=== PATIENT | female | born 1940 | race African-American/Black ===

== ENCOUNTER 2016-06-20 11:04 | Outpatient (CLI) | payer MEDICARE ==
[2016-06-20 11:38] LABS: ALT (SGPT) 11 U/L (8-55); AST (SGOT) 14 U/L (5-34); Albumin 4.1 g/dL (3.4-4.8); Alkaline Phosphatase 110 U/L (40-150); Bilirubin, Direct 0.2 mg/dL (0.1-0.3); Bilirubin, Total 0.5 mg/dL (0.2-1.2); Cardiac Risk 2.7 (Less than 4.5); Cholesterol 112 mg/dL (< 200 Desired); HDL Cholesterol 41 mg/dL (>60 Neg Risk); LDL Cholesterol, Calculated 46 mg/dL; Protein, Total 6.3 g/dL (5.8-8.1); Triglycerides 124 mg/dL (Less than 150)
== END 2016-06-20 11:05 | disposition home or self-care (01) ==
LOC: MADLAB 11:04
PROVIDERS: ATTEND Internal Medicine Cardiovascular Disease
DX: E11.22 Type 2 diabetes mellitus with diabetic chronic kidney disease (principal); N18.6 End stage renal disease
CPT/HCPCS: 36415; 80061; 80076

== ENCOUNTER 2016-07-23 10:26 | Outpatient (CLI) | payer MEDICAID, MEDICARE, OTHER ==
[2016-07-23 11:07] LABS: #Basophils 0.1 thou/uL (0.0-0.2); #Eosinphils 0.3 thou/uL (0.0-0.7); #Lymphocytes 1.7 thou/uL (1.20-3.40); #Monocytes 0.8 thou/uL (0.11-0.59); #Neutrophils 4.7 thou/uL (1.40-6.50); %Basophils 1.3 % (0.0-1.0); %Eosinophils 3.4 % (0.0-10.0); %Lymphocytes 22.2 % (21.0-51.0); %Monocytes 10.2 % (0.0-10.0); %Neutrophils 62.9 % (42.0-75.0); Hemoglobin 11.2 g/dL (12.0-16.0); Mean Corpuscular HGB CONC 34.8 g/dL (32.0-36.0); Mean Corpuscular Hemoglobin 33.2 pg (27.0-31.0); Mean Corpuscular Volume 95.5 fl (81.0-99.0); Mean Platelet Volume 7.7 fL (7.4-10.4); Platelet Count 223 thou/uL (130-400); RBC Distribution Width 13.5 % (11.5-14.5); Red Blood Cell (RBC) Count 3.36 mill/uL (4.20-5.40); White Blood Cell (WBC) Count 7.5 thou/uL (4.8-10.8)
[2016-07-23 11:15] LABS: Hemoglobin A1c 5.3 % (4.0-6.0)
[2016-07-23 11:26] LABS: ALT (SGPT) 11 U/L (8-55); AST (SGOT) 14 U/L (5-34); Albumin 3.9 g/dL (3.4-4.8); Alkaline Phosphatase 130 U/L (40-150); Anion Gap 17 mmol/L (10-20); BUN (Urea Nitrogen) 39 mg/dL (9.8-20.1); Bilirubin, Total 0.5 mg/dL (0.2-1.2); Calc. Creatinine Clearance 0 mL/min (70-130); Calcium 9.8 mg/dL (7.8-10.44); Carbon Dioxide 29 mmol/L (23-31); Cardiac Risk 2.8 (Less than 4.5); Chloride 100 mmol/L (98-107); Cholesterol 109 mg/dl (< 200 Desired); Estimated GFR-MDRD 6; Globulin 3.1 g/dL (2.4-3.5); Glucose 97 mg/dL (83-110); HDL Cholesterol 39 mg/dL (>60 Neg Risk); LDL Cholesterol, Calculated 41 mg/dL; Potassium 3.4 mmol/L (3.5-5.1); Sodium 143 mmol/L (136-145); Triglycerides 144 mg/dL (Less than 150); Uric Acid 4.1 mg/dL (2.6-6.0)
== END 2016-07-23 10:27 ==
LOC: MADLABBHPM 10:26
PROVIDERS: ATTEND Family Medicine
DX: E78.5 Hyperlipidemia, unspecified (principal); E11.9 Type 2 diabetes mellitus without complications; M10.00 Idiopathic gout, unspecified site; Z79.01 Long term (current) use of anticoagulants
CPT/HCPCS: 36415; 80053; 80061; 83036; 84443; 84550; 85025

== ENCOUNTER 2016-09-12 20:31 | Emergency (ER) | payer MEDICARE, MEDICAID ==
[2016-09-12 21:14] LABS: #Basophils 0.1 thou/uL (0.0-0.2); #Eosinphils 0.2 thou/uL (0.0-0.7); #Lymphocytes 2.2 thou/uL (1.20-3.40); #Monocytes 0.7 thou/uL (0.11-0.59); #Neutrophils 4.7 thou/uL (1.40-6.50); %Basophils 1.2 % (0.0-1.0); %Eosinophils 2.9 % (0.0-10.0); %Lymphocytes 28.2 % (21.0-51.0); %Monocytes 8.2 % (0.0-10.0); %Neutrophils 59.6 % (42.0-75.0); Hemoglobin 10.7 g/dL (12.0-16.0); Mean Corpuscular HGB CONC 33.3 g/dL (32.0-36.0); Mean Corpuscular Hemoglobin 31.7 pg (27.0-31.0); Mean Corpuscular Volume 95.1 fl (81.0-99.0); Mean Platelet Volume 7.3 fL (7.4-10.4); Platelet Count 180 thou/uL (130-400); RBC Distribution Width 14.4 % (11.5-14.5); Red Blood Cell (RBC) Count 3.38 mill/uL (4.20-5.40)
--- NOTE | 2016-09-12 21:19 | RAD ---
FRONTAL RADIOGRAPH CHEST 09/12/16 COMPARISON: 03/25/15 HISTORY: Dyspnea. FINDINGS: There is no pneumothorax or pleural fluid. There is no focal consolidation, or alveolar edema. Heart and mediastinal contours appear within normal limits. IMPRESSION: There is a subtle area of increased density in the right lung apex which may represent a confluence of osseous shadows. Recommend followup PA and lateral chest imaging to exclude an abnormal pleural b ased density. IMPRESSION: No acute findings. Subtle increased density in the right lung apex for which followup PA and lateral chest imaging is advised. Code T POS: [facility]
[2016-09-12 21:20] LABS: INR-International Normal Ratio 1.9; PTT 36.5 SEC (22.9-36.1); Prothrombin Time 22.4 SEC (12.0-14.7)
[2016-09-12] MEDS ORDERED: Morphine Sulfate 2 MG/ML SYRINGE ONE (21:26)
[2016-09-12] MEDS ORDERED: Ondansetron HCl/PF 4 MG/2 ML Vial ONE (21:26)
[2016-09-12 21:30] LABS: Clarity Clear (Clear); Glucose, Urine (Dipstick) Negative (Negative); Leukocyte Negative (Negative); Nitrite Negative (Negative); Protein, Urine (Dipstick) Trace mg/dL (Neg-Trace); Urobilinogen 0.2 mg/dL (0.2-1.0)
[2016-09-12 21:30] LABS: CKMB 0.8 ng/mL (0-6.6); Troponin I 0.011 ng/mL (< 0.028)
[2016-09-12 21:31] LABS: Bilirubin Negative (Negative); Blood, Urine Negative (Negative); Icto Negative (Negative)
[2016-09-12 21:33] LABS: Bacteria/HPF None Seen HPF (None Seen); Crystals/HPF None Seen HPF (Negative); Hyaline Casts/LPF NONE SEEN LPF (0-3 Hyaline); Other Casts/LPF None Seen LPF (0-3 Hyaline); Other Microscopic Description N; Oval Fat Bodies/HPF None Seen HPF (None Seen); RBC/HPF 0-3 HPF (0-3); Sperm/HPF None Seen HPF (None Seen); Squamous Epithelial 0-3 HPF (0-3); Transitional Epithelial 0-3 HPF (0-3); Trichomonas/HPF None Seen HPF (None Seen); WBC/HPF 0-3 HPF (0-3); Yeast-All Forms None Seen HPF (None Seen)
[2016-09-12 21:35] LABS: ALT (SGPT) 14 U/L (8-55); AST (SGOT) 13 U/L (5-34); Albumin 3.6 g/dL (3.4-4.8); Alkaline Phosphatase 116 U/L (40-150); Anion Gap 17 mmol/L (10-20); BUN (Urea Nitrogen) 12 mg/dL (9.8-20.1); Bilirubin, Total 0.4 mg/dL (0.2-1.2); CK (CPK) 97 U/L (29-168); Calc. Creatinine Clearance 0 mL/min (70-130); Calcium 8.9 mg/dL (7.8-10.44); Carbon Dioxide 29 mmol/L (23-31); Chloride 96 mmol/L (98-107); Estimated GFR-MDRD 18; Globulin 2.9 g/dL (2.4-3.5); Glucose 194 mg/dL (83-110); Magnesium 1.9 mg/dL (1.6-2.6); Protein, Total 6.5 g/dL (6.0-8.3); Sodium 139 mmol/L (136-145)
[2016-09-12 21:38] LABS: Potassium 2.9 mmol/L (3.5-5.1)
[2016-09-12] MEDS ORDERED: Potassium Chloride 20 MEQ TAB ONE (21:43)
[2016-09-12] MEDS ORDERED: Benzonatate 100 MG CAP ONE (22:20)
[2016-09-12] MEDS ORDERED: AMOXicillin 250 MG CAP ONE (22:20)
--- NOTE | 2016-09-12 22:45 | RAD ---
PA AND LATERAL CHEST RADIOGRAPH 09/12/16 at 10:25 p.m. COMPARISON: Single view chest performed earlier on 09/12/16. HISTORY: Evaluate increased density in right lung apex. FINDINGS: The area of increased density seen on recent portable chest radiograph does not persist on this exam . There is no pneumothorax, pleural fluid, focal consolidation, or alveolar edema. Lateral examinati on demonstrates prominence of the cardiac silhouette and degenerative change within the thoracic spi ne. The lateral examination is limited secondary to motion artifact. IMPRESSION: No acute findings. POS: [facility]
== END 2016-09-12 22:57 | disposition home or self-care (01) ==
LOC: MADERS 20:31
DX: J44.1 Chronic obstructive pulmonary disease with (acute) exacerbation (principal); I13.0 Hypertensive heart and chronic kidney disease with heart failure and stage 1 through stage 4 chronic kidney disease, or unspecified chronic kidney disease; I50.9 Heart failure, unspecified; N18.4 Chronic kidney disease, stage 4 (severe); G89.4 Chronic pain syndrome; E87.6 Hypokalemia; E11.8 Type 2 diabetes mellitus with unspecified complications; E78.5 Hyperlipidemia, unspecified; F32.9 Major depressive disorder, single episode, unspecified; Z87.891 Personal history of nicotine dependence; Z79.891 Long term (current) use of opiate analgesic; Z79.899 Other long term (current) drug therapy
CPT/HCPCS: 36415; 51701; 71010; 71020; 80053; 81001; 82550; 82553; 83735; 83880; 84484; 85025; 85610; 85730; 93005; 94760; 96374; 96375; A4353; J2270; J2405

== ENCOUNTER 2016-10-23 12:53 | Outpatient (CLI) | payer MEDICAID, MEDICARE ==
[2016-10-23 13:16] LABS: #Basophils 0.1 thou/uL (0.0-0.2); #Eosinphils 0.3 thou/uL (0.0-0.7); #Lymphocytes 1.1 thou/uL (1.20-3.40); #Monocytes 0.6 thou/uL (0.11-0.59); #Neutrophils 5.3 thou/uL (1.40-6.50); %Basophils 0.7 % (0.0-1.0); %Eosinophils 3.6 % (0.0-10.0); %Neutrophils 72.6 % (42.0-75.0); Hemoglobin 11.9 g/dL (12.0-16.0); Mean Corpuscular HGB CONC 31.7 g/dL (32.0-36.0); Mean Corpuscular Hemoglobin 31.4 pg (27.0-31.0); Mean Corpuscular Volume 99.1 fl (81.0-99.0); Mean Platelet Volume 6.8 fL (7.4-10.4); Platelet Count 237 thou/uL (130-400); RBC Distribution Width 15.8 % (11.5-14.5); Red Blood Cell (RBC) Count 3.78 mill/uL (4.20-5.40); White Blood Cell (WBC) Count 7.3 thou/uL (4.8-10.8)
[2016-10-23 13:49] LABS: ALT (SGPT) 18 U/L (8-55); AST (SGOT) 15 U/L (5-34); Albumin 3.8 g/dL (3.4-4.8); Alkaline Phosphatase 117 U/L (40-150); Anion Gap 20 mmol/L (10-20); BUN (Urea Nitrogen) 23 mg/dL (9.8-20.1); Bilirubin, Total 0.6 mg/dL (0.2-1.2); Calc. Creatinine Clearance 0 mL/min (70-130); Calcium 9.2 mg/dL (7.8-10.44); Carbon Dioxide 29 mmol/L (23-31); Chloride 99 mmol/L (98-107); Estimated GFR-MDRD 9; Globulin 2.5 g/dL (2.4-3.5); Glucose 108 mg/dL (83-110); Hemoglobin A1c 4.8 % (4.0-6.0); Protein, Total 6.3 g/dL (6.0-8.3); Sodium 144 mmol/L (136-145)
== END 2016-10-23 12:54 | disposition home or self-care (01) ==
LOC: MADLAB 12:53
PROVIDERS: ATTEND Family Medicine
DX: Z51.81 Encounter for therapeutic drug level monitoring (principal); E11.22 Type 2 diabetes mellitus with diabetic chronic kidney disease; I13.0 Hypertensive heart and chronic kidney disease with heart failure and stage 1 through stage 4 chronic kidney disease, or unspecified chronic kidney disease; N18.4 Chronic kidney disease, stage 4 (severe); E78.5 Hyperlipidemia, unspecified; Z79.01 Long term (current) use of anticoagulants; Z86.711 Personal history of pulmonary embolism; D63.1 Anemia in chronic kidney disease
CPT/HCPCS: 36415; 80053; 83036; 85025

== ENCOUNTER 2016-10-25 10:04 | Outpatient (CLI) | payer MEDICARE ==
[2016-10-25 10:33] LABS: INR-International Normal Ratio 1.4; Prothrombin Time 17.5 SEC (12.0-14.7)
== END 2016-10-25 10:05 | disposition home or self-care (01) ==
LOC: MADLABBHPM 10:04
PROVIDERS: ATTEND Family Medicine
DX: Z51.81 Encounter for therapeutic drug level monitoring (principal); Z79.01 Long term (current) use of anticoagulants
CPT/HCPCS: 36415; 85610

== ENCOUNTER 2016-11-17 01:16 | Emergency (ER) | payer MEDICARE ==
[2016-11-17] MEDS ORDERED: Ketorolac Tromethamine 30 MG/ML VIAL ONE (01:50)
[2016-11-17 01:57] LABS: #Basophils 0.1 thou/uL (0.0-0.2); #Eosinphils 0.2 thou/uL (0.0-0.7); #Lymphocytes 1.6 thou/uL (1.20-3.40); #Monocytes 0.7 thou/uL (0.11-0.59); #Neutrophils 5.5 thou/uL (1.40-6.50); %Eosinophils 2.7 % (0.0-10.0); %Lymphocytes 19.4 % (21.0-51.0); %Monocytes 9.1 % (0.0-10.0); %Neutrophils 67.8 % (42.0-75.0); Hemoglobin 11.7 g/dL (12.0-16.0); Mean Corpuscular HGB CONC 33.3 g/dL (32.0-36.0); Mean Corpuscular Hemoglobin 32.2 pg (27.0-31.0); Mean Corpuscular Volume 96.6 fl (81.0-99.0); Mean Platelet Volume 7.2 fL (7.4-10.4); Platelet Count 252 thou/uL (130-400); Red Blood Cell (RBC) Count 3.64 mill/uL (4.20-5.40)
[2016-11-17 02:13] LABS: CKMB 1.1 ng/mL (0-6.6); Troponin I 0.017 ng/mL (< 0.028)
[2016-11-17 02:22] LABS: Calc. Creatinine Clearance 0 mL/min (70-130); Estimated GFR-MDRD 10
[2016-11-17 02:23] LABS: ALT (SGPT) 19 U/L (8-55); AST (SGOT) 51 U/L (5-34); Albumin 3.7 g/dL (3.4-4.8); Alkaline Phosphatase 99 U/L (40-150); Anion Gap 18 mmol/L (10-20); BUN (Urea Nitrogen) 28 mg/dL (9.8-20.1); Bilirubin, Total 0.4 mg/dL (0.2-1.2); Calcium 9.3 mg/dL (7.8-10.44); Carbon Dioxide 29 mmol/L (23-31); Chloride 97 mmol/L (98-107); Globulin 3.7 g/dL (2.4-3.5); Glucose 99 mg/dL (83-110); Potassium 4.6 mmol/L (3.5-5.1); Protein, Total 7.4 g/dL (6.0-8.3); Sodium 139 mmol/L (136-145)
[2016-11-17 02:38] LABS: Bilirubin Small (Negative); Blood, Urine Negative (Negative); Clarity Clear (Clear); Glucose, Urine (Dipstick) Negative (Negative); Leukocyte Negative (Negative); Nitrite Negative (Negative); Protein, Urine (Dipstick) Negative (Neg-Trace); Specific Gravity, Urine 1.015 (1.005-1.030); Urobilinogen 0.2 mg/dL (0.2-1.0)
== END 2016-11-17 02:59 | disposition home or self-care (01) ==
LOC: MADERS 01:16
DX: I13.0 Hypertensive heart and chronic kidney disease with heart failure and stage 1 through stage 4 chronic kidney disease, or unspecified chronic kidney disease (principal); N18.4 Chronic kidney disease, stage 4 (severe); I50.9 Heart failure, unspecified; G89.29 Other chronic pain; M54.5 Low back pain; E78.5 Hyperlipidemia, unspecified; E11.9 Type 2 diabetes mellitus without complications; M10.9 Gout, unspecified; I08.0 Rheumatic disorders of both mitral and aortic valves; F32.9 Major depressive disorder, single episode, unspecified; Z87.891 Personal history of nicotine dependence; Z79.01 Long term (current) use of anticoagulants; Z79.899 Other long term (current) drug therapy
CPT/HCPCS: 51701; 80053; 81003; 82553; 84484; 85025; 85730; 93005; 96372; A4353; J1885

== ENCOUNTER 2017-02-03 16:37 | Emergency (ER) | payer MEDICARE, MEDICAID ==
[2017-02-03] MEDS ORDERED: Azithromycin 250 MG TAB ONE (17:28)
[2017-02-03] MEDS ORDERED: HYDROcodone/Acetaminophen 5/325 mg Tablet ONE (17:28)
[2017-02-03] MEDS ORDERED: Amoxicillin/Potassium Clav 875 MG TAB ONE (17:28)
[2017-02-03] MEDS ORDERED: Dexamethasone 4 MG TAB ONE (17:30)
[2017-02-03] MEDS ORDERED: Benzonatate 100 MG CAP ONE (17:30)
--- NOTE | 2017-02-03 18:02 | RAD ---
RADIOGRAPH CHEST 2 VIEWS: HISTORY: 76-year-old female with cough. FINDINGS: There is no air space density, pulmonary edema, pleural effusion, pneumothorax, or cardiomegaly. IMPRESSION: No acute cardiopulmonary findings. pamela POS: [facility]
== END 2017-02-03 17:44 | disposition home or self-care (01) ==
LOC: MADERS 16:37
DX: J20.9 Acute bronchitis, unspecified (principal); E11.9 Type 2 diabetes mellitus without complications; I13.0 Hypertensive heart and chronic kidney disease with heart failure and stage 1 through stage 4 chronic kidney disease, or unspecified chronic kidney disease; I50.9 Heart failure, unspecified; N18.4 Chronic kidney disease, stage 4 (severe); F32.9 Major depressive disorder, single episode, unspecified; E78.5 Hyperlipidemia, unspecified; M10.9 Gout, unspecified; Z87.891 Personal history of nicotine dependence; Z79.82 Long term (current) use of aspirin; Z79.899 Other long term (current) drug therapy; Z79.01 Long term (current) use of anticoagulants
CPT/HCPCS: 71020; J8540

== ENCOUNTER 2017-02-08 18:16 | Emergency (ER) | payer MEDICARE, OTHER ==
[2017-02-08 19:05] LABS: INR-International Normal Ratio 2.4
[2017-02-08 19:06] LABS: PTT 55.7 SEC (22.9-36.1)
--- NOTE | 2017-02-08 19:15 | RAD ---
LEFT HIP TWO VIEWS: 02/08/17 HISTORY: 76-year-old female with left hip pain. COMPARISON: 10/14/14. FINDINGS: Mild degenerative changes left hip joint. No fracture or dislocation or other acute process. IMPRESSION: No fracture or dislocation. Minimal degenerative changes. POS: [facility]
[2017-02-08 19:16] LABS: ALT (SGPT) 12 U/L (8-55); AST (SGOT) 13 U/L (5-34); Albumin 3.7 g/dL (3.4-4.8); Alkaline Phosphatase 105 U/L (40-150); Anion Gap 21 mmol/L (10-20); BUN (Urea Nitrogen) 49 mg/dL (9.8-20.1); Bilirubin, Total 0.6 mg/dL (0.2-1.2); CK (CPK) 146 U/L (29-168); Calc. Creatinine Clearance 0 mL/min (70-130); Calcium 8.6 mg/dL (7.8-10.44); Carbon Dioxide 30 mmol/L (23-31); Chloride 97 mmol/L (98-107); Estimated GFR-MDRD 5; Globulin 3.3 g/dL (2.4-3.5); Glucose 128 mg/dL (83-110); Potassium 5.7 mmol/L (3.5-5.1); Sodium 142 mmol/L (136-145)
[2017-02-08 19:18] LABS: CKMB 0.6 ng/mL (0-6.6); Troponin I 0.018 ng/mL (< 0.028)
[2017-02-08 19:19] LABS: Hemoglobin 11.4 g/dL (12.0-16.0); Lymphocytes 2 % (21-51); MDiff Complete? YES; Mean Corpuscular HGB CONC 32.6 g/dL (32.0-36.0); Mean Corpuscular Hemoglobin 32.5 pg (27.0-31.0); Mean Corpuscular Volume 99.9 fl (81.0-99.0); Mean Platelet Volume 7.1 fL (7.4-10.4); Metamyelocyte 1 % (0-0); Monocytes 2 % (0-10); Myelocyte 1 % (0-0); Neutrophil 88 % (42-75); PLT Morphology Comment Appears Adequate; Platelet Count 280 thou/uL (130-400); RBC Distribution Width 14.7 % (11.5-14.5); Reactive Lymphocytes 6 % (0-10); White Blood Cell (WBC) Count 18.7 thou/uL (4.8-10.8)
--- NOTE | 2017-02-08 19:21 | RAD ---
PORTABLE CHEST ONE VIEW: 02/08/17 HISTORY: 76-year-old female with chest pain. COMPARISON: 09/12/16. A loop recorder is noted overlying the left chest. Heart size is within normal limits. No confluent p neumonia, overt edema, or pleural effusion. IMPRESSION: No acute intrathoracic disease. POS: [facility]
== END 2017-02-08 21:16 | disposition short-term general hospital (02) ==
LOC: MADERS 18:16
DX: I13.2 Hypertensive heart and chronic kidney disease with heart failure and with stage 5 chronic kidney disease, or end stage renal disease (principal); I50.9 Heart failure, unspecified; N18.6 End stage renal disease; I38 Endocarditis, valve unspecified; E11.9 Type 2 diabetes mellitus without complications; E78.5 Hyperlipidemia, unspecified; F32.9 Major depressive disorder, single episode, unspecified; M10.9 Gout, unspecified; Z87.891 Personal history of nicotine dependence; Z79.01 Long term (current) use of anticoagulants; Z79.899 Other long term (current) drug therapy; Z79.891 Long term (current) use of opiate analgesic
CPT/HCPCS: 36415; 71010; 80053; 82550; 82553; 84484; 85025; 85610; 85730; 93005; 94760

== ENCOUNTER 2017-03-11 15:57 | Emergency (ER) | payer MEDICARE, MEDICAID ==
[2017-03-11] MEDS ORDERED: HYDROcodone/Acetaminophen 10/325 mg Tablet ONE (16:24)
[2017-03-11 16:35] LABS: #Basophils 0.1 thou/uL (0.0-0.2); #Eosinphils 0.3 thou/uL (0.0-0.7); #Lymphocytes 1.5 thou/uL (1.20-3.40); #Monocytes 0.7 thou/uL (0.11-0.59); %Eosinophils 3.3 % (0.0-10.0); %Lymphocytes 17.5 % (21.0-51.0); %Monocytes 8.3 % (0.0-10.0); %Neutrophils 69.9 % (42.0-75.0); Hemoglobin 10.5 g/dL (12.0-16.0); Mean Corpuscular HGB CONC 31.2 g/dL (32.0-36.0); Mean Corpuscular Hemoglobin 32.1 pg (27.0-31.0); Mean Corpuscular Volume 102.9 fl (81.0-99.0); Mean Platelet Volume 6.9 fL (7.4-10.4); Platelet Count 272 thou/uL (130-400); RBC Distribution Width 15.6 % (11.5-14.5); Red Blood Cell (RBC) Count 3.28 mill/uL (4.20-5.40); White Blood Cell (WBC) Count 8.6 thou/uL (4.8-10.8)
[2017-03-11 16:45] LABS: INR-International Normal Ratio 2.3; PTT 50.1 SEC (22.9-36.1); Prothrombin Time 26.5 SEC (12.0-14.7)
[2017-03-11 17:01] LABS: ALT (SGPT) Less than 7 U/L (8-55); AST (SGOT) 14 U/L (5-34); Albumin 3.9 g/dL (3.4-4.8); Alkaline Phosphatase 111 U/L (40-150); Anion Gap 20 mmol/L (10-20); BUN (Urea Nitrogen) 18 mg/dL (9.8-20.1); Bilirubin, Total 0.6 mg/dL (0.2-1.2); Calc. Creatinine Clearance 0 mL/min (70-130); Calcium 8.7 mg/dL (7.8-10.44); Carbon Dioxide 31 mmol/L (23-31); Chloride 95 mmol/L (98-107); Estimated GFR-MDRD 10; Globulin 3.4 g/dL (2.4-3.5); Glucose 109 mg/dL (83-110); Potassium 4.4 mmol/L (3.5-5.1); Protein, Total 7.3 g/dL (6.0-8.3); Sodium 142 mmol/L (136-145)
== END 2017-03-11 17:15 | disposition home or self-care (01) ==
LOC: MADERS 15:57
DX: M79.621 Pain in right upper arm (principal); I12.0 Hypertensive chronic kidney disease with stage 5 chronic kidney disease or end stage renal disease; N18.6 End stage renal disease; E11.22 Type 2 diabetes mellitus with diabetic chronic kidney disease; E78.5 Hyperlipidemia, unspecified; M10.9 Gout, unspecified; F32.9 Major depressive disorder, single episode, unspecified; Z79.82 Long term (current) use of aspirin; Z79.899 Other long term (current) drug therapy
CPT/HCPCS: 36415; 80053; 85025; 85610; 85730; 99283

== ENCOUNTER 2017-04-09 16:07 | Emergency (ER) | payer MEDICARE, MEDICAID ==
--- NOTE | 2017-04-09 16:45 | RAD ---
AP VIEW CHEST: Date: 04/09/17 INDICATION: Nausea and vomiting. COMPARISON: Prior study dated 02/08/17. FINDINGS: No air space consolidation or pleural effusion is evident. Calcification overlying the left heart bor alicia is stable. Calcified lymph nodes involving the mediastinum and right hilar region are stable. No pleural effusion or pneumothorax evident. IMPRESSION: No acute cardiopulmonary abnormality. POS: [facility]
[2017-04-09 17:00] LABS: INR-International Normal Ratio 3.8; Prothrombin Time 39.4 SEC (12.0-14.7)
[2017-04-09 17:10] LABS: ALT (SGPT) 7 U/L (8-55); AST (SGOT) 10 U/L (5-34); Albumin 3.3 g/dL (3.4-4.8); Alkaline Phosphatase 90 U/L (40-150); Anion Gap 18 mmol/L (10-20); BUN (Urea Nitrogen) 56 mg/dL (9.8-20.1); Bilirubin, Total 0.2 mg/dL (0.2-1.2); Calc. Creatinine Clearance 0 mL/min (70-130); Calcium 7.8 mg/dL (7.8-10.44); Carbon Dioxide 30 mmol/L (23-31); Chloride 98 mmol/L (98-107); Estimated GFR-MDRD 8; Globulin 2.2 g/dL (2.4-3.5); Glucose 126 mg/dL (83-110); Lipase 29 U/L (8-78); Potassium 3.7 mmol/L (3.5-5.1); Protein, Total 5.5 g/dL (6.0-8.3); Sodium 142 mmol/L (136-145)
[2017-04-09 17:13] LABS: CKMB 0.8 ng/mL (0-6.6); Troponin I 0.036 ng/mL (< 0.028)
[2017-04-09] MEDS ORDERED: MORPHINE 10 MG/ML SYRINGE ONE (17:37)
[2017-04-09 17:43] LABS: %Basophils 0.8 % (0.0-1.0); %Eosinophils 1.9 % (0.0-10.0); %Lymphocytes 13.9 % (21.0-51.0); %Monocytes 5.9 % (0.0-10.0); %Neutrophils 77.6 % (42.0-75.0); Hemoglobin 8.2 g/dL (12.0-16.0); Manual Diff?? NO; Mean Corpuscular HGB CONC 32.1 g/dL (32.0-36.0); Mean Corpuscular Hemoglobin 32.9 pg (27.0-31.0); Mean Platelet Volume 6.2 fL (7.4-10.4); Platelet Count 256 thou/uL (130-400); RBC Distribution Width 14.9 % (11.5-14.5); White Blood Cell (WBC) Count 9.8 thou/uL (4.8-10.8)
[2017-04-09 17:44] LABS: #Basophils 0.1 thou/uL (0.0-0.2); #Eosinphils 0.2 thou/uL (0.0-0.7); #Lymphocytes 1.4 thou/uL (1.20-3.40); #Monocytes 0.6 thou/uL (0.11-0.59); #Neutrophils 7.6 thou/uL (1.40-6.50)
[2017-04-09 20:22] LABS: #Lymphocytes 1.6 thou/uL (1.20-3.40); #Neutrophils 7.1 thou/uL (1.40-6.50); %Eosinophils 2.3 % (0.0-10.0); %Lymphocytes 16.5 % (21.0-51.0); %Monocytes 7.5 % (0.0-10.0); %Neutrophils 72.7 % (42.0-75.0); Hemoglobin 7.9 g/dL (12.0-16.0); Mean Corpuscular HGB CONC 31.7 g/dL (32.0-36.0); Mean Corpuscular Hemoglobin 32.6 pg (27.0-31.0); Mean Platelet Volume 6.8 fL (7.4-10.4); Platelet Count 242 thou/uL (130-400); RBC Distribution Width 14.8 % (11.5-14.5); Red Blood Cell (RBC) Count 2.43 mill/uL (4.20-5.40); White Blood Cell (WBC) Count 9.7 thou/uL (4.8-10.8)
[2017-04-09 20:23] LABS: #Basophils 0.1 thou/uL (0.0-0.2); #Eosinphils 0.3 thou/uL (0.0-0.7); #Monocytes 0.7 thou/uL (0.11-0.59)
[2017-04-09 20:41] LABS: Hypochromia SLIGHT = 6-15 cells (100X) (0-5/hpf); PLT Morphology Comment Appears Adequate; RBC Morphology Abnormal
== END 2017-04-09 21:10 | disposition short-term general hospital (02) ==
LOC: MADERS 16:07
DX: K92.1 Melena (principal); R79.1 Abnormal coagulation profile; E11.22 Type 2 diabetes mellitus with diabetic chronic kidney disease; I13.2 Hypertensive heart and chronic kidney disease with heart failure and with stage 5 chronic kidney disease, or end stage renal disease; N18.6 End stage renal disease; I50.9 Heart failure, unspecified; E78.5 Hyperlipidemia, unspecified; F32.9 Major depressive disorder, single episode, unspecified; Z87.891 Personal history of nicotine dependence; Z79.899 Other long term (current) drug therapy
CPT/HCPCS: 36415; 71045; 80053; 82274; 82553; 83605; 83690; 83735; 84484; 85025; 85610; 85730; 86850; 86900; 86901; 93005; 96374; J2270

== ENCOUNTER 2017-04-18 16:06 | Outpatient (CLI) | payer MEDICARE, OTHER ==
[2017-04-18 16:13] LABS: INR-International Normal Ratio 1.1; Prothrombin Time 14.2 SEC (12.0-14.7)
== END 2017-04-18 16:07 | disposition home or self-care (01) ==
LOC: MADLABBHPM 16:06
PROVIDERS: ATTEND Family Medicine
DX: K92.2 Gastrointestinal hemorrhage, unspecified (principal)
CPT/HCPCS: 36415; 85610

== ENCOUNTER 2017-04-19 10:29 | Outpatient (CLI) | payer MEDICARE, OTHER ==
[2017-04-19 11:12] LABS: ALT (SGPT) 10 U/L (8-55); AST (SGOT) 13 U/L (5-34); Albumin 3.6 g/dL (3.4-4.8); Alkaline Phosphatase 97 U/L (40-150); Anion Gap 20 mmol/L (10-20); BUN (Urea Nitrogen) 37 mg/dL (9.8-20.1); Bilirubin, Total 0.4 mg/dL (0.2-1.2); Calc. Creatinine Clearance 0 mL/min (70-130); Calcium 8.1 mg/dL (7.8-10.44); Carbon Dioxide 30 mmol/L (23-31); Cardiac Risk 2.8 (Less than 4.5); Chloride 102 mmol/L (98-107); Cholesterol 114 mg/dl (< 200 Desired); Estimated GFR-MDRD 6; Glucose 112 mg/dL (83-110); HDL Cholesterol 41 mg/dL (>60 Neg Risk); LDL Cholesterol, Calculated 52 mg/dL; Potassium 3.9 mmol/L (3.5-5.1); Protein, Total 5.6 g/dL (6.0-8.3); Sodium 148 mmol/L (136-145); Triglycerides 107 mg/dL (Less than 150); Uric Acid 4.6 mg/dL (2.6-6.0)
[2017-04-19 17:04] LABS: Hemoglobin A1c 4.9 % (4.0-6.0)
== END 2017-04-19 10:30 | disposition home or self-care (01) ==
LOC: MADLABBHPM 10:29
PROVIDERS: ATTEND Family Medicine
DX: I50.32 Chronic diastolic (congestive) heart failure (principal); J96.10 Chronic respiratory failure, unspecified whether with hypoxia or hypercapnia; J44.9 Chronic obstructive pulmonary disease, unspecified
CPT/HCPCS: 36415; 80053; 80061; 83036; 84550

== ENCOUNTER 2017-05-30 13:19 | Outpatient (CLI) | payer MEDICARE, OTHER ==
[2017-05-30 13:55] LABS: ALT (SGPT) 12 U/L (8-55); AST (SGOT) 16 U/L (5-34); Alkaline Phosphatase 91 U/L (40-150); Anion Gap 17 mmol/L (10-20); BUN (Urea Nitrogen) 32 mg/dL (9.8-20.1); Bilirubin, Total 0.6 mg/dL (0.2-1.2); Calc. Creatinine Clearance 0 mL/min (70-130); Calcium 8.5 mg/dL (7.8-10.44); Carbon Dioxide 32 mmol/L (23-31); Chloride 100 mmol/L (98-107); Cholesterol 140 mg/dl (< 200 Desired); Estimated GFR-MDRD 8; Globulin 2.8 g/dL (2.4-3.5); Glucose 88 mg/dL (83-110); HDL Cholesterol 46 mg/dL (>60 Neg Risk); LDL Cholesterol, Calculated 64 mg/dL; Potassium 4.5 mmol/L (3.5-5.1); Protein, Total 6.8 g/dL (6.0-8.3); Sodium 144 mmol/L (136-145); Triglycerides 150 mg/dL (Less than 150)
== END 2017-05-30 13:20 | disposition home or self-care (01) ==
LOC: MADLABBHPM 13:19
PROVIDERS: ATTEND Family Medicine
DX: E78.5 Hyperlipidemia, unspecified (principal); K92.2 Gastrointestinal hemorrhage, unspecified; Z86.39 Personal history of other endocrine, nutritional and metabolic disease
CPT/HCPCS: 36415; 80053; 80061; 83036

== ENCOUNTER 2017-08-05 16:15 | Emergency (ER) | payer MEDICARE, OTHER, MEDICAID ==
--- NOTE | 2017-08-05 17:23 | CT ---
CT BRAIN NONCONTRAST: HISTORY: A 76-year-old female status post syncope. FINDINGS: There is no midline shift or any other mass effect. There is no evidence of acute intracranial hemor rhage, large cortical infarct, obstructive hydrocephalus, or extraaxial fluid collection. The calvar ium is intact. There is a fatty mass in the soft tissues of the right upper neck, lateral to the C1- C2 level, incompletely imaged. This has been present since at least the 10/14/[address] and repr esents a benign lipoma. IMPRESSION: 1. No acute intracranial findings. 2. 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 jnr POS: [facility]
[2017-08-05 17:27] LABS: ALT (SGPT) 15 U/L (8-55); AST (SGOT) 20 U/L (5-34); Albumin 4.1 g/dL (3.4-4.8); Alkaline Phosphatase 114 U/L (40-150); Anion Gap 23 mmol/L (10-20); BUN (Urea Nitrogen) 20 mg/dL (9.8-20.1); Bilirubin, Total 0.8 mg/dL (0.2-1.2); Calc. Creatinine Clearance 0 mL/min (70-130); Calcium 8.7 mg/dL (7.8-10.44); Carbon Dioxide 30 mmol/L (23-31); Chloride 95 mmol/L (98-107); Estimated GFR-MDRD 10; Globulin 3.1 g/dL (2.4-3.5); Glucose 114 mg/dL (83-110); Potassium 3.6 mmol/L (3.5-5.1); Protein, Total 7.2 g/dL (6.0-8.3); Sodium 144 mmol/L (136-145)
[2017-08-05 17:29] LABS: CKMB 1.1 ng/mL (0-6.6); Troponin I 0.016 ng/mL (< 0.028)
[2017-08-05 17:32] LABS: #Basophils 0.1 thou/uL (0.0-0.2); #Eosinphils 0.2 thou/uL (0.0-0.7); #Lymphocytes 1.1 thou/uL (1.20-3.40); #Monocytes 0.5 thou/uL (0.11-0.59); #Neutrophils 4.6 thou/uL (1.40-6.50); %Basophils 1.1 % (0.0-1.0); %Eosinophils 2.6 % (0.0-10.0); %Lymphocytes 16.6 % (21.0-51.0); %Monocytes 7.7 % (0.0-10.0); Hemoglobin 12.1 g/dL (12.0-16.0); Mean Corpuscular HGB CONC 32.2 g/dL (32.0-36.0); Mean Corpuscular Hemoglobin 29.7 pg (27.0-31.0); Mean Corpuscular Volume 92.2 fl (81.0-99.0); Mean Platelet Volume 6.3 fL (7.4-10.4); Platelet Count 273 thou/uL (130-400); RBC Distribution Width 15.1 % (11.5-14.5); Red Blood Cell (RBC) Count 4.08 mill/uL (4.20-5.40); White Blood Cell (WBC) Count 6.4 thou/uL (4.8-10.8)
== END 2017-08-05 19:07 | disposition short-term general hospital (02) ==
LOC: MADERS 16:15
DX: R55 Syncope and collapse (principal); R07.89 Other chest pain; E11.9 Type 2 diabetes mellitus without complications; E78.5 Hyperlipidemia, unspecified; I10 Essential (primary) hypertension; I12.9 Hypertensive chronic kidney disease with stage 1 through stage 4 chronic kidney disease, or unspecified chronic kidney disease; E11.22 Type 2 diabetes mellitus with diabetic chronic kidney disease; N18.4 Chronic kidney disease, stage 4 (severe); M10.9 Gout, unspecified; F32.9 Major depressive disorder, single episode, unspecified; I50.9 Heart failure, unspecified; Z87.891 Personal history of nicotine dependence; Z79.899 Other long term (current) drug therapy; Z79.01 Long term (current) use of anticoagulants
CPT/HCPCS: 36416; 70450; 80053; 82553; 84484; 85025; 93005

== ENCOUNTER 2017-08-15 13:21 | Outpatient (CLI) | payer MEDICARE, OTHER ==
[2017-08-15 13:47] LABS: INR-International Normal Ratio 2.6; Prothrombin Time 27.9 SEC (12.0-14.7)
== END 2017-08-15 13:22 | disposition home or self-care (01) ==
LOC: MADLABBHPM 13:21
PROVIDERS: ATTEND Family Medicine
DX: Z51.81 Encounter for therapeutic drug level monitoring (principal); I13.0 Hypertensive heart and chronic kidney disease with heart failure and stage 1 through stage 4 chronic kidney disease, or unspecified chronic kidney disease; I50.9 Heart failure, unspecified; N18.9 Chronic kidney disease, unspecified; Z79.01 Long term (current) use of anticoagulants
CPT/HCPCS: 85610

== ENCOUNTER 2017-08-27 15:11 | Outpatient (CLI) | payer MEDICARE, OTHER ==
[2017-08-27 15:28] LABS: INR-International Normal Ratio 1.9; Prothrombin Time 21.6 SEC (12.0-14.7)
== END 2017-08-27 15:12 | disposition home or self-care (01) ==
LOC: MADLABBHPM 15:11
PROVIDERS: ATTEND Family Medicine
DX: Z51.81 Encounter for therapeutic drug level monitoring (principal); I20.9 Angina pectoris, unspecified; I13.0 Hypertensive heart and chronic kidney disease with heart failure and stage 1 through stage 4 chronic kidney disease, or unspecified chronic kidney disease; N18.9 Chronic kidney disease, unspecified; I50.9 Heart failure, unspecified; Z79.01 Long term (current) use of anticoagulants
CPT/HCPCS: 85610

== ENCOUNTER 2017-09-03 12:58 | Outpatient (CLI) | payer MEDICARE, OTHER ==
[2017-09-03 13:23] LABS: INR-International Normal Ratio 1.8; Prothrombin Time 21.2 SEC (12.0-14.7)
== END 2017-09-03 12:59 | disposition home or self-care (01) ==
LOC: MADLABBHPM 12:58
PROVIDERS: ATTEND Family Medicine
DX: Z51.81 Encounter for therapeutic drug level monitoring (principal); I11.9 Hypertensive heart disease without heart failure; N28.9 Disorder of kidney and ureter, unspecified; Z79.01 Long term (current) use of anticoagulants
CPT/HCPCS: 85610

== ENCOUNTER 2017-09-17 19:43 | Outpatient (CLI) | payer MEDICARE, OTHER ==
[2017-09-17 19:50] LABS: INR-International Normal Ratio 1.8; Prothrombin Time 20.5 SEC (12.0-14.7)
== END 2017-09-17 19:44 | disposition home or self-care (01) ==
LOC: MADLAB 19:43
PROVIDERS: ATTEND Family Medicine
DX: I25.119 Atherosclerotic heart disease of native coronary artery with unspecified angina pectoris (principal); I13.2 Hypertensive heart and chronic kidney disease with heart failure and with stage 5 chronic kidney disease, or end stage renal disease; I50.9 Heart failure, unspecified; N18.9 Chronic kidney disease, unspecified; Z79.01 Long term (current) use of anticoagulants
CPT/HCPCS: 85610

== ENCOUNTER 2017-10-10 09:18 | Outpatient (CLI) | payer MEDICARE, OTHER ==
--- NOTE | 2017-10-10 11:16 | RAD ---
PA AND LATERAL CHEST RADIOGRAPH: Date: 10-10-17 History: Bronchopneumonia. Comparison: 08-05-17 FINDINGS: Patient is rotated to the right which accentuates the cardiac silhouette and mediastinal structures. There are calcified right hilar lymph nodes present. There is suggestion of blunting of the right lat eral costophrenic angle, but this could be attributable to patient rotation and overlying soft tissue density, but a tiny right pleural effusion is a possibility. Given technique of the exam and patient rotation, the cardiac silhouette and pulmonary vasculature do appear to be within normal limits. Deg enerative change is seen in the spine. Vascular calcification is seen in the thoracic aorta. There rousseau s been no other interval change. IMPRESSION: Blunting of the right lateral costophrenic angle which may be artifactual and secondary to overlying soft tissue density related to patient rotation, but a tiny right pleural effusion cannot be entirely excluded. POS: [facility]
== END 2017-10-10 09:19 | disposition home or self-care (01) ==
LOC: MADRAD 09:18
PROVIDERS: ATTEND Family Medicine
DX: J18.0 Bronchopneumonia, unspecified organism (principal)
CPT/HCPCS: 71046

== ENCOUNTER 2017-12-05 00:03 | Emergency (ER) | payer MEDICARE, OTHER ==
[2017-12-05 01:42] LABS: ALT (SGPT) 9 U/L (8-55); AST (SGOT) 16 U/L (5-34); Alkaline Phosphatase 135 U/L (40-150); Anion Gap 18 mmol/L (10-20); BUN (Urea Nitrogen) 24 mg/dL (9.8-20.1); Bilirubin, Total 0.4 mg/dL (0.2-1.2); CKMB 0.7 ng/mL (0-6.6); Calc. Creatinine Clearance 0 mL/min (70-130); Calcium 9.4 mg/dL (7.8-10.44); Carbon Dioxide 30 mmol/L (23-31); Chloride 95 mmol/L (98-107); Estimated GFR-MDRD 9; Globulin 3.7 g/dL (2.4-3.5); Glucose 111 mg/dL (83-110); Potassium 3.5 mmol/L (3.5-5.1); Protein, Total 7.7 g/dL (6.0-8.3); Sodium 139 mmol/L (136-145); Troponin I 0.017 ng/mL (< 0.028)
[2017-12-05] MEDS ORDERED: HYDROcodone/Acetaminophen 5/325 mg Tablet ONE (01:50)
[2017-12-05 01:52] LABS: #Basophils 0.1 thou/uL (0.0-0.2); #Eosinphils 0.1 thou/uL (0.0-0.7); #Lymphocytes 1.3 thou/uL (1.20-3.40); #Monocytes 0.7 thou/uL (0.11-0.59); #Neutrophils 5.2 thou/uL (1.40-6.50); %Lymphocytes 17.1 % (21.0-51.0); %Monocytes 9.9 % (0.0-10.0); %Neutrophils 70.1 % (42.0-75.0); Hemoglobin 11.6 g/dL (12.0-16.0); Mean Corpuscular HGB CONC 31.1 g/dL (32.0-36.0); Mean Corpuscular Hemoglobin 29.5 pg (27.0-31.0); Mean Corpuscular Volume 94.6 fL (78.0-98.0); Mean Platelet Volume 6.8 fL (7.4-10.4); Platelet Count 282 thou/uL (130-400); RBC Distribution Width 15.4 % (11.5-14.5); Red Blood Cell (RBC) Count 3.94 mill/uL (4.20-5.40); White Blood Cell (WBC) Count 7.5 thou/uL (4.8-10.8)
--- NOTE | 2017-12-05 08:18 | RAD ---
RIGHT RIB SERIES 3 VIEWS: DATE: 12/05/2017. PROVIDED CLINICAL HISTORY: Chest pain. FINDINGS: There is no evidence for a displaced right-sided rib fracture. Suboptimal visualization of the poste rior ribs inferiorly. There is evidence for moderate to large right pleural effusion which is new wi th respect to the prior study of 10/10/2017. IMPRESSION: 1. Limited study without evidence for displaced rib fracture. 2. Moderate to large pleural effusion. Correlate with chest radiograph. POS: [facility]
--- NOTE | 2017-12-05 08:19 | RAD ---
PORTABLE CHEST: DATE: 12/05/2017. PROVIDED CLINICAL HISTORY: Chest pain. FINDINGS: Comparison is made with the study dated 10/10/2017. The cardiac silhouette appears enlarged which may be at least partially on the basis of portable technique. Prominence of the pulmonary vasculature i s noted. There is right basilar opacity that may reflect pleural fluid and/or infiltrate. There is no evidence for pneumothorax or left pleural fluid. There is an implanted loop recorder device note d. IMPRESSION: 1. Cardiomegaly and findings suggesting congestive failure. 2. Right basilar pleural parenchymal opacity. Followup is recommended. POS: [facility]
== END 2017-12-05 04:33 | disposition home or self-care (01) ==
LOC: MADERS 00:03
DX: J90 Pleural effusion, not elsewhere classified (principal); E11.9 Type 2 diabetes mellitus without complications; E78.5 Hyperlipidemia, unspecified; M10.9 Gout, unspecified; I13.0 Hypertensive heart and chronic kidney disease with heart failure and stage 1 through stage 4 chronic kidney disease, or unspecified chronic kidney disease; N18.4 Chronic kidney disease, stage 4 (severe); I50.9 Heart failure, unspecified; E11.22 Type 2 diabetes mellitus with diabetic chronic kidney disease; F32.9 Major depressive disorder, single episode, unspecified; Z87.891 Personal history of nicotine dependence
CPT/HCPCS: 36415; 71045; 80053; 82553; 84484; 85025; 93005; 94760

== ENCOUNTER 2017-12-31 13:00 | Outpatient (CLI) | payer MEDICARE, OTHER ==
[2017-12-31 13:43] LABS: ALT (SGPT) 10 U/L (8-55); AST (SGOT) 18 U/L (5-34); Albumin 3.9 g/dL (3.4-4.8); Alkaline Phosphatase 130 U/L (40-150); Anion Gap 19 mmol/L (10-20); BUN (Urea Nitrogen) 38 mg/dL (9.8-20.1); Bilirubin, Total 0.4 mg/dL (0.2-1.2); Calc. Creatinine Clearance 0 mL/min (70-130); Calcium 9.4 mg/dL (7.8-10.44); Carbon Dioxide 29 mmol/L (23-31); Cardiac Risk 2.7 (Less than 4.5); Chloride 95 mmol/L (98-107); Cholesterol 117 mg/dl (< 200 Desired); Estimated GFR-MDRD 6; Globulin 3.1 g/dL (2.4-3.5); Glucose 130 mg/dL (83-110); HDL Cholesterol 43 mg/dL (>60 Neg Risk); LDL Cholesterol, Calculated 49 mg/dL; Potassium 4.3 mmol/L (3.5-5.1); Sodium 139 mmol/L (136-145); Triglycerides 127 mg/dL (Less than 150); Uric Acid 3.4 mg/dL (2.6-6.0)
[2017-12-31 16:59] LABS: Hemoglobin A1c 5.4 % (4.0-6.0)
== END 2017-12-31 13:01 | disposition home or self-care (01) ==
LOC: MADLABBHPM 13:00
PROVIDERS: ATTEND Family Medicine
DX: I13.2 Hypertensive heart and chronic kidney disease with heart failure and with stage 5 chronic kidney disease, or end stage renal disease (principal); I25.119 Atherosclerotic heart disease of native coronary artery with unspecified angina pectoris; I50.32 Chronic diastolic (congestive) heart failure
CPT/HCPCS: 80053; 80061; 83036; 84550

== ENCOUNTER 2018-02-03 12:33 | Emergency (ER) | payer MEDICARE, MEDICAID ==
[2018-02-03 14:19] LABS: #Basophils 0.1 thou/uL (0.0-0.2); #Eosinphils 0.1 thou/uL (0.0-0.7); #Lymphocytes 0.9 thou/uL (1.20-3.40); #Monocytes 0.6 thou/uL (0.11-0.59); #Neutrophils 7.5 thou/uL (1.40-6.50); %Basophils 0.7 % (0.0-1.0); %Eosinophils 1.1 % (0.0-10.0); %Lymphocytes 10.3 % (21.0-51.0); %Monocytes 6.4 % (0.0-10.0); %Neutrophils 81.6 % (42.0-75.0); Mean Corpuscular HGB CONC 30.6 g/dL (32.0-36.0); Mean Corpuscular Hemoglobin 29.2 pg (27.0-31.0); Mean Corpuscular Volume 95.2 fL (78.0-98.0); Mean Platelet Volume 6.9 fL (7.4-10.4); Platelet Count 345 thou/uL (130-400); RBC Distribution Width 15.5 % (11.5-14.5); Red Blood Cell (RBC) Count 3.76 mill/uL (4.20-5.40); White Blood Cell (WBC) Count 9.1 thou/uL (4.8-10.8)
[2018-02-03 14:26] LABS: INR-International Normal Ratio 3.8; Prothrombin Time 37.2 SEC (12.0-14.7)
[2018-02-03 14:35] LABS: ALT (SGPT) 10 U/L (8-55); AST (SGOT) 24 U/L (5-34); Albumin 3.9 g/dL (3.4-4.8); Alkaline Phosphatase 110 U/L (40-150); Anion Gap 20 mmol/L (10-20); BUN (Urea Nitrogen) 22 mg/dL (9.8-20.1); Bilirubin, Total 0.5 mg/dL (0.2-1.2); Calc. Creatinine Clearance 0 mL/min (70-130); Calcium 9.8 mg/dL (7.8-10.44); Carbon Dioxide 27 mmol/L (23-31); Chloride 98 mmol/L (98-107); Estimated GFR-MDRD 10; Globulin 3.8 g/dL (2.4-3.5); Glucose 99 mg/dL (83-110); Potassium 3.4 mmol/L (3.5-5.1); Protein, Total 7.7 g/dL (6.0-8.3); Sodium 142 mmol/L (136-145)
== END 2018-02-03 15:22 | disposition home or self-care (01) ==
LOC: MADERS 12:33
DX: T82.838A Hemorrhage due to vascular prosthetic devices, implants and grafts, initial encounter (principal); D68.8 Other specified coagulation defects; E11.9 Type 2 diabetes mellitus without complications; E78.5 Hyperlipidemia, unspecified; M10.9 Gout, unspecified; I50.9 Heart failure, unspecified; I11.0 Hypertensive heart disease with heart failure; F32.9 Major depressive disorder, single episode, unspecified; Z87.891 Personal history of nicotine dependence; Z79.01 Long term (current) use of anticoagulants; Z79.899 Other long term (current) drug therapy; Z79.891 Long term (current) use of opiate analgesic
CPT/HCPCS: 12001; 36415; 80053; 85025; 85610

== ENCOUNTER 2018-02-24 18:10 | Emergency (ER) | payer MEDICARE, MEDICAID ==
--- NOTE | 2018-02-24 19:16 | RAD ---
PORTABLE CHEST: 02/24/2018 PROVIDED CLINICAL HISTORY: Malaise. COMPARISON: 12/29/2017 FINDINGS: The examination is hypoinflated, limiting evaluation. Patient body habitus also limits evaluation. The cardiac silhouette appears enlarged. Vascular calcification is noted involving the aortic arch. The right pleural density at the base is again seen, which appears increased with respect to the audrey or study. Linear densities involving the adjacent right lung may reflect vascular congestion, atelec tasis, or interstitial thickening. There is no evidence for pneumothorax. IMPRESSION: Large right pleural effusion with adjacent atelectasis or infiltrate. POS: [facility]
[2018-02-24 19:18] LABS: #Basophils 0.1 thou/uL (0.0-0.2); #Eosinphils 0.2 thou/uL (0.0-0.7); #Lymphocytes 0.7 thou/uL (1.20-3.40); #Monocytes 0.6 thou/uL (0.11-0.59); #Neutrophils 8.4 thou/uL (1.40-6.50); %Basophils 0.7 % (0.0-1.0); %Eosinophils 1.9 % (0.0-10.0); %Lymphocytes 7.3 % (21.0-51.0); %Neutrophils 84.1 % (42.0-75.0); Mean Corpuscular HGB CONC 31.4 g/dL (32.0-36.0); Mean Corpuscular Hemoglobin 29.8 pg (27.0-31.0); Mean Corpuscular Volume 94.8 fL (78.0-98.0); Mean Platelet Volume 7.3 fL (7.4-10.4); Platelet Count 333 thou/uL (130-400); RBC Distribution Width 16.3 % (11.5-14.5); Red Blood Cell (RBC) Count 3.68 mill/uL (4.20-5.40); White Blood Cell (WBC) Count 9.9 thou/uL (4.8-10.8)
[2018-02-24 19:22] LABS: Prothrombin Time 47.4 SEC (12.0-14.7)
[2018-02-24 19:23] LABS: PTT 105.1 SEC (22.9-36.1)
[2018-02-24 19:33] LABS: ALT (SGPT) 11 U/L (8-55); AST (SGOT) 20 U/L (5-34); Alkaline Phosphatase 127 U/L (40-150); Anion Gap 19 mmol/L (10-20); BUN (Urea Nitrogen) 25 mg/dL (9.8-20.1); Bilirubin, Total 0.4 mg/dL (0.2-1.2); Calc. Creatinine Clearance 0 mL/min (70-130); Calcium 9.3 mg/dL (7.8-10.44); Carbon Dioxide 31 mmol/L (23-31); Chloride 95 mmol/L (98-107); Estimated GFR-MDRD 10; Globulin 3.7 g/dL (2.4-3.5); Glucose 108 mg/dL (83-110); Potassium 3.6 mmol/L (3.5-5.1); Protein, Total 7.7 g/dL (6.0-8.3); Sodium 141 mmol/L (136-145)
[2018-02-24 19:38] LABS: INR-International Normal Ratio 5.2
== END 2018-02-24 20:25 | disposition home or self-care (01) ==
LOC: MADERS 18:10
DX: I13.2 Hypertensive heart and chronic kidney disease with heart failure and with stage 5 chronic kidney disease, or end stage renal disease (principal); I50.9 Heart failure, unspecified; N18.6 End stage renal disease; J90 Pleural effusion, not elsewhere classified; D68.9 Coagulation defect, unspecified; E11.22 Type 2 diabetes mellitus with diabetic chronic kidney disease; E78.5 Hyperlipidemia, unspecified; Z79.899 Other long term (current) drug therapy; Z79.891 Long term (current) use of opiate analgesic
CPT/HCPCS: 71045; 80053; 83880; 84484; 85025; 85610; 85730; 93005

== ENCOUNTER 2018-03-19 16:18 | Emergency (ER) | payer MEDICARE, MEDICAID ==
--- NOTE | 2018-03-19 17:01 | RAD ---
CHEST 1 VIEW: Date: 03/19/18 HISTORY: Dyspnea. COMPARISON: 02/24/18. FINDINGS: Cardiac silhouette remains obscured by right pleural fluid and basilar infiltrate. Pulmonary vasculat ure remains engorged with widespread reticulonodular interstitial prominence. Mediastinum is midline with aortic calcification. No evidence of pneumothorax. anthropology professor leads overlie the chest. IMPRESSION: Large amount of right pleural fluid, pulmonary vascular congestion, and other findings are stable. POS: [facility]
[2018-03-19 17:19] LABS: #Lymphocytes 0.4 thou/uL (1.20-3.40); #Monocytes 0.6 thou/uL (0.11-0.59); %Basophils 0.4 % (0.0-1.0); %Eosinophils 0.5 % (0.0-10.0); %Lymphocytes 3.8 % (21.0-51.0); %Monocytes 6.2 % (0.0-10.0); Hemoglobin 10.1 g/dL (12.0-16.0); Mean Corpuscular HGB CONC 30.6 g/dL (32.0-36.0); Mean Corpuscular Volume 94.5 fL (78.0-98.0); Mean Platelet Volume 7.2 fL (7.4-10.4); Platelet Count 281 thou/uL (130-400); Red Blood Cell (RBC) Count 3.48 mill/uL (4.20-5.40); White Blood Cell (WBC) Count 10.1 thou/uL (4.8-10.8)
[2018-03-19 17:26] LABS: ALT (SGPT) 15 U/L (8-55); AST (SGOT) 31 U/L (5-34); Albumin 3.7 g/dL (3.4-4.8); Alkaline Phosphatase 116 U/L (40-150); Anion Gap 20 mmol/L (10-20); BUN (Urea Nitrogen) 20 mg/dL (9.8-20.1); Bilirubin, Total 0.4 mg/dL (0.2-1.2); Calc. Creatinine Clearance 0 mL/min (70-130); Calcium 9.9 mg/dL (7.8-10.44); Carbon Dioxide 31 mmol/L (23-31); Chloride 95 mmol/L (98-107); Estimated GFR-MDRD 15; Globulin 4.2 g/dL (2.4-3.5); Glucose 125 mg/dL (83-110); Potassium 3.8 mmol/L (3.5-5.1); Protein, Total 7.9 g/dL (6.0-8.3); Sodium 142 mmol/L (136-145)
[2018-03-19 17:30] LABS: Base Excess-Venous 8.2 mmol/L (0 (+/- 2.5)); Bicarbonate (HCO3v) 35.3 mmol/L (22.0-29.0); CO2 Tension (PvCO2) 59.8 mmHg (41.0-51.0); O2 Tension (PvO2) 29.9 mmHg (35.0-45.0); pH (Venous) 7.379 (7.35-7.45)
[2018-03-19 17:31] LABS: Calcium, Ionized 1.07 mmol/L (1.12-1.32); Hemoglobin - Calc 12.6 g/dL (12.0-18.0); Potassium 3.1 mmol/L (3.4-4.7); T. Carbon Dioxide 37.2 mmol/L (1.0-85.0); vO2 Saturation-calc 53.6 % (94-98)
[2018-03-19 18:08] LABS: INR-International Normal Ratio 1.3; Prothrombin Time 16.1 SEC (12.0-14.7)
--- NOTE | 2018-03-19 19:49 | CT ---
HEAD CT WITHOUT CONTRAST: 03/19/18 HISTORY: Altered mental status. COMPARISON: 08/05/17. FINDINGS: No parenchymal hemorrhage. No extra-axial hematoma. No midline shift. Basilar cisterns are patent. Br ain volume, age appropriate. Cortical skinner-white matter differentiation is preserved. No evidence of hydrocephalus. Calvarium is intact. Adequate aeration of the sinuses and mastoid air c ells. IMPRESSION: No acute intracranial process. POS: [facility]
== END 2018-03-19 19:54 | disposition short-term general hospital (02) ==
LOC: MADERS 16:18
DX: J90 Pleural effusion, not elsewhere classified (principal); E78.5 Hyperlipidemia, unspecified; I11.0 Hypertensive heart disease with heart failure; I50.9 Heart failure, unspecified; F32.9 Major depressive disorder, single episode, unspecified; Z79.01 Long term (current) use of anticoagulants; Z79.899 Other long term (current) drug therapy
CPT/HCPCS: 36415; 70450; 71045; 80053; 82330; 82435; 82803; 83880; 84132; 84295; 85014; 85025; 85610; 93005